=== PATIENT | male | born 1985 | race Caucasian/White ===

== ENCOUNTER 2016-08-02 20:34 | Emergency (ER) | payer MEDICAID ==
[~2016-08-02] VITALS: Ht 167.6 cm; Wt 81.1 kg
[2016-08-02 20:40] VITALS: Ht 167.6 cm; Wt 81.1 kg
--- NOTE | 2016-08-02 21:27 | ERD ---
ER Documentation Chief Complaint Date/Time DATE: 08/02/16 TIME: 21:25 Chief Complaint allergic reaction after eating peanut- body rashes, no sob HPI This is a 31-year-old male who presents to the emergency department today complaining of a heat sensation and feeling warm on his body after eating peanuts and drinking 2 beers. Denies any chest pain, shortness of breath or difficulty breathing. States he has not taken any medication. ROS All systems reviewed and are negative except as per history of present illness. Medications Home Meds Active Scripts Famotidine* (Pepcid*) 20 Mg Tablet, 20 MG PO BID for 7 Days, TAB Prov:FELICIA ISAAC PA-C 08/02/16 Prednisone* (Prednisone*) 20 Mg Tab, 40 MG PO DAILY for 4 Days, TAB Prov:FELICIA ISAAC PA-C 08/02/16 Diphenhydramine Hcl* (Benadryl*) 25 Mg Cap, 25 MG PO Q6, #30 CAP Prov:FELICIA ISAAC PA-C 08/02/16 Allergies Allergies: Coded Allergies: peanut (Verified Allergy, Unknown, 08/02/16) PMhx/Soc Medical and Surgical Hx: pt denies Medical Hx, pt denies Surgical Hx History of Surgery: No Anesthesia Reaction: No Hx Neurological Disorder: No Hx Respiratory Disorders: No Hx Cardiac Disorders: No Hx Psychiatric Problems: No Hx Miscellaneous Medical Probl: No Hx Alcohol Use: Yes Hx Substance Use: No Smoking Status: Never smoker Physical Exam Vitals Vital Signs Date Time Temp Pulse Resp B/P Pulse Ox O2 Delivery O2 Flow Rate FiO2 08/02/16 20:40 98.3 97 20 131/96 96 Physical Exam Const: No acute distress Head: Atraumatic Eyes: Normal Conjunctiva ENT: Normal External Ears, Nose and Mouth. No lip swelling. No tongue swelling. Neck: Full range of motion..~ No meningismus. Resp: Clear to auscultation bilaterally. No absent breath sounds. No wheezing. Cardio: Regular rate and rhythm, no murmurs Abd: Soft, non tender, non distended. Normal bowel sounds Skin: Diffuse erythema over chest and arms. No evidence of cellulitis or purulent drainage. Neur: Awake and alert Psych: Normal Mood and Affect Results 24 hrs Current Medications Medications (Trade) Dose Ordered Sig/Kate Route PRN Reason Start Time Stop Time Status Last Admin Dose Admin Diphenhydramine HCl (Benadryl) 25 mg ONCE ONCE IM 08/02/16 21:30 08/02/16 21:31 DC 08/02/16 21:17 Famotidine (Pepcid) 20 mg ONCE ONCE PO 08/02/16 21:30 08/02/16 21:31 DC 08/02/16 21:17 Dexamethasone (Decadron) 10 mg ONCE ONCE IM 08/02/16 21:30 08/02/16 21:31 DC 08/02/16 21:17 Procedures/MDM This a 29-year-old male who presents to the emergency department today complaining of a rash that started a couple hours prior to arrival after eating peanuts and drinking 2 beers. On physical exam patient had some diffuse erythema over his chest neck and arms. Patient symptoms at this time was consistent with allergic reaction. He is afebrile and otherwise well- appearing. He is not short of breath. His oxygen saturations 96%. He is in no acute distress. Low suspicion for cellulitis, sepsis, SJS, angioedema or anaphylaxis. Patient was given Decadron, Benadryl and Pepcid here in the emergency department and symptoms improved.. He will be given a short course of prednisone for home as well as Pepcid and Benadryl. At this time the patient is stable for discharge and outpatient management. Patient should follow up with their PCP in the next 1-2 days. They may return to the emergency department sooner for any persistent or worsening of symptoms. Patient understood and agreed with the plan. Departure Diagnosis: Primary Impression: Allergic reaction Encounter type: initial encounter Qualified Code: T78.40XA - Allergic reaction, initial encounter Condition: FELICIA Solano PA-C Aug 02, 2016 21:27
[2016-08-02] MEDS ORDERED: DIPHENHYDRAMINE 50 MG INJ IM ONE (21:30)
[2016-08-02] MEDS ORDERED: FAMOTIDINE 20 MG TAB PO ONE (21:30)
[2016-08-02] MEDS ORDERED: DEXAMETHASONE 10 MG/ML 1 ML INJ IM ONE (21:30)
[2016-08-02] MEDS ORDERED: BEN25 PO (22:05)
[2016-08-02] MEDS ORDERED: PRED20TA PO (22:05)
[2016-08-02] MEDS ORDERED: FAMO-18 PO (22:05)
== END 2016-08-02 22:15 | disposition home or self-care (01) ==
LOC: FTE 20:34
DX: T78.1XXA Other adverse food reactions, not elsewhere classified, initial encounter (principal); R21 Rash and other nonspecific skin eruption
CPT/HCPCS: 96372; J1100; J1200; Z7502; Z7610